=== PATIENT | female | born 1945 | race Caucasian/White ===

== ENCOUNTER → 2017-02-26 | Outpatient (CLI) | payer MEDICARE, OTHER ==
[~2017-02-26] MED LIST: ACETAMIN-HYDROcod 325-5 MG PO; ASPI81TA82 PO; BACL10TA PO; BISA10R PR; BONI150T PO; CRAN450T PO; DULC5TAB PO; ESCI20TA PO; IOHEXOL 350 MG/ML 10 ML VIAL (for RAD DIAG) IV ONE; LEVO125T3 PO; LISI2.5T3 PO; METO25CR PO; MORP1INJ45 PO; NEUR400C PO; NITR0.4S SL; RIVA20 PO; TAB-TAB PO; TRAZ50TA4 PO; VITA-13 PO; ZOFR4TAB PO
--- NOTE | 2017-02-26 15:38 | RADRPT ---
EXAM DATE/TIME: 02/26/2017 13:30 [place] COMPARISON: No previous studies available for comparison. INDICATIONS : Peripheral vascular disease. IV CONTRAST: 98 cc Omnipaque 350 (iohexol) IV RADIATION DOSE: 6.97 CTDIvol (mGy) MEDICAL HISTORY : Hypertension. Multiple sclerosis. SURGICAL HISTORY : Hysterectomy. ENCOUNTER: Initial ACUITY: 1 month PAIN SCALE: 0/10 LOCATION: Bilateral lower legs TECHNIQUE: Volumetric scanning was performed using a multi-row detector CT scanner. The data was post processed with a variety of visualization algorithms including full volume maximum intensity projection, multi -planar sliding thin slab reformation, curved planar reformation, and surface rendering techniques. Using automated exposure control and adjustment of the mA and/or kV according to patient size, radiat ion dose was kept as low as reasonably achievable to obtain optimal diagnostic quality images. FINDINGS: The abdominal aorta is widely patent with patchy intimal calcification mild atheromatous irregularity . The visceral vessels are intact. 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 The renal arteries are widely patent. The YASMIN is patent. There i s moderate iliac disease present bilaterally with severely diseased small caliber common and external iliac vessels on both sides. The hypogastrics are severely diseased. The common femorals are small i n caliber with moderate posterior plaquing bilaterally. The profundas are patent bilaterally. The superficial femoral arteries occlude bilaterally. The right popliteal artery wanders out of the f [id number] in this patient with significant lower extremity contractures. The left popliteal artery is reconstituted. Calf runoff appears to be adequate, however the distal visualization is extremely poor for technical reasons. Elsewhere on the exam, note is made of mild consolidative change in the posterior right lung base. Re nal and hepatic cysts are present. An inferior vena caval filter is present and the IVC below the dilan ter appears atretic, likely occluded. 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 Cipriano Feliz MD on February 26, 2017 at 15:27 Board Certified Radiologist. This report was verified electronically.
== END ==
LOC: HRAD 12:48
PROVIDERS: ATTEND Surgery
DX: I73.9 Peripheral vascular disease, unspecified (principal)
CPT/HCPCS: 75635; Q9967